=== PATIENT | female | born 1935 | race Caucasian/White ===

== ENCOUNTER 2016-03-02 17:00 | Emergency (ER) | payer MEDICARE ==
[~2016-03-02] VITALS: Ht 162.6 cm; Wt 65.0 kg
[~2016-03-02 17:00] MED LIST: BENZ100 PO; CALA180T PO; COZA50TA PO; IBUP600T26 PO
[2016-03-02 17:13] VITALS: BP 169/97; PULSE 82; RESP 16; TEMP 98.1; O2SAT 97
[2016-03-02] MEDS ORDERED: SODIUM CHLORIDE 0.9% FLUSH 5 ML FLUSH IVF PRN (17:30)
[2016-03-02] MEDS ORDERED: FAMO1TAB37 PO (17:32)
[2016-03-02] MEDS ORDERED: VERA180T35 PO (17:32)
[2016-03-02] MEDS ORDERED: APIX5TAB PO (17:32)
[2016-03-02 17:40] LABS: AUTOMATED NEUTROPHIL # 4.1 TH/MM3 (1.8-7.7); BASOPHIL # 0.1 TH/MM3 (0-0.2); BASOPHIL % 1.8 % (0.0-2.0); EOSINOPHIL # 0.1 TH/MM3 (0-0.4); EOSINOPHIL % 1.1 % (0.0-4.0); LYMPH % 31.6 % (9.0-44.0); LYMPHOCYTE # 2.2 TH/MM3 (1.0-4.8); MEAN CELL VOLUME 88.9 FL (80.0-100.0); MEAN CORPUSCULAR HGB CONC 33.7 % (32.0-36.0); MONO % 8.3 % (0.0-8.0); NEUT % 57.2 % (16.0-70.0); PLATELET COUNT 215 TH/MM3 (150-450); RED BLOOD COUNT 4.83 MIL/MM3 (4.00-5.30); RED CELL DISTRIBUTION WIDTH 13.1 % (11.6-17.2); WHITE BLOOD COUNT 7.1 TH/MM3 (4.0-11.0)
[2016-03-02 17:47] LABS: HEMO FLAGS DIFF FINAL
[2016-03-02 17:48] LABS: CHLORIDE 108 MEQ/L (98-107); POTASSIUM 4.8 MEQ/L (3.5-5.1); SODIUM (NA) 140 MEQ/L (136-145)
--- NOTE | 2016-03-02 17:48 | RADHPO ---
EXAM DATE/TIME: 03/02/2016 17:29 [facility] COMPARISON: No previous studies available for comparison. INDICATIONS : Altered mental status. Numbness and tingling right side of face. RADIATION DOSE: 59.88 CTDIvol (mGy) MEDICAL HISTORY : Hypertension. Deep venous thrombosis. SURGICAL HISTORY : None. ENCOUNTER: Initial ACUITY: 1 day PAIN SCALE: 0/10 LOCATION: Right facial TECHNIQUE: Multiple contiguous axial images were obtained of the head. Using automated exposure control and adj ustment of the mA and/or kV according to patient size, radiation dose was kept as low as reasonably a chievable to obtain optimal diagnostic quality images. FINDINGS: CEREBRUM: The ventricles are normal for age. No evidence of midline shift, mass lesion, hemorrhage or acute in farction. No extra-axial fluid collections are seen. POSTERIOR FOSSA: The cerebellum and brainstem are intact. The 4th ventricle is midline. The cerebellopontine angle i s unremarkable. EXTRACRANIAL: The visualized portion of the orbits is intact. SKULL: The calvaria is intact. No evidence of skull fracture. CONCLUSION: Normal examination for a patient of this age. Goran Tomlinson MD on March 02, 2016 at 17:45 Board Certified Radiologist. This report was verified electronically.
[2016-03-02 17:51] LABS: ANION GAP 10 MEQ/L (5-15); BICARBONATE 21.9 MEQ/L (21.0-32.0); BLOOD UREA NITROGEN 21 MG/DL (7-18)
[2016-03-02 17:54] LABS: ALT (GPT) 32 U/L (10-53); AST (GOT) 26 U/L (15-37); GLOMERULAR FILTRATION RATE 54 ML/MIN (>89)
[2016-03-02 17:56] LABS: TOTAL BILIRUBIN ADULT 0.4 MG/DL (0.2-1.0)
[2016-03-02 17:57] LABS: ALKALINE PHOSPHATASE 101 U/L (45-117)
--- NOTE | 2016-03-02 18:06 | PD ---
HPI Chief Complaint: Numbness/Tingling Time Seen by Provider: 17:10 Travel History International Travel<30 days: No Contact w/Intl Traveler<30days: No Traveled to known affect area: No History of Present Illness HPI Patient is a 72-year-old female presents with several weeks' duration of numbness and tingling with the left side of her face. Patient states she's also had some numbness tingling left side of her tongue intermittently. Denies any headaches denies any focal weakness. Patient states that this started approximately 1:00 in the afternoon today and did not relent. 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 Patient states that she called her primary care physician who referred her to the emergency department for a CAT scan of her head. PFSH Past Medical History Hx Anticoagulant Therapy: Yes (ELIQUIS) Cardiovascular Problems: Yes (HTN, CHOL) High Cholesterol: Yes Diabetes: No Diminished Hearing: No Deep Vein Thrombosis: Yes Glaucoma: No Hepatitis: No Hiatal Hernia: No Hypertension: Yes Respiratory: No Thyroid Disease: No Tetanus Vaccination: < 5 Years ?: Not : 0 Past Surgical History Abdominal Surgery: Yes Appendectomy: Yes Cardiac Surgery: No Cholecystectomy: Yes Ear Surgery: No Endocrine Surgery: No Eye Surgery: No Genitourinary Surgery: No Gynecologic Surgery: Yes (LEFT OVARY REMOVED) Neurologic Surgery: No Oral Surgery: No Pacemaker: No Thoracic Surgery: No Other Surgery: Yes Social History Alcohol Use: Yes (OCC WINE) Tobacco Use: No Substance Use: No Allergies-Medications (Allergen,Severity, Reaction): Coded Allergies: Lovastatin (Verified Allergy, Severe, LIVER FUNCTION DEPRESSED , 03/02/16) Xanax (Verified Allergy, Severe, SWELLING FACE , 03/02/16) Enalapril (Verified Allergy, Intermediate, COUGH, 03/02/16) Niacin (Verified Allergy, Intermediate, RASH, 03/02/16) Tessalon Perles (Verified Allergy, Intermediate, Itching, 03/02/16) Amoxicillin (Verified Allergy, Unknown, 03/02/16) Brimonidine (Unverified Allergy, Unknown, H/A, 03/02/16) Darvocet-N 100 (Verified Allergy, Unknown, CAN'T REMEMBER, 03/02/16) Dorzolamide (Unverified Allergy, Unknown, 03/02/16) Fosamax (Unverified Allergy, Unknown, I DONT KNOW, 03/02/16) Latanoprost (Unverified Allergy, Unknown, RED EYES, HEAD ACHE, 03/02/16) Oxycodone (Unverified Allergy, Unknown, SOB, 03/02/16) Simvastatin (Verified Allergy, Unknown, 03/02/16) Codeine (Verified Adverse Reaction, Mild, 03/02/16) Uncoded Allergies: TRAVATAM (Allergy, Unknown, HEAD ACHE, 06/22/14) Reported Meds & Prescriptions Reported Meds & Active Scripts Active Reported Pepcid (Famotidine) 20 Mg Tab 20 Mg PO BID Eliquis (Apixaban) 5 Mg Tab 5 Mg PO BID Verapamil SR (Verapamil HCl) 180 Mg Tab 180 Mg PO BID Review of Systems Except as stated in HPI: all other systems reviewed are Neg Physical Exam Narrative GENERAL: Well-developed well-nourished no apparent distress SKIN: Warm and dry. HEAD: Atraumatic. Normocephalic. EYES: Pupils equal and round. No scleral icterus. No injection or drainage. EOMI ENT: No nasal bleeding or discharge. Mucous membranes pink and moist. NECK: Trachea midline. No JVD. CARDIOVASCULAR: Regular rate and rhythm. No murmur appreciated. RESPIRATORY: No accessory muscle use. Clear to auscultation. Breath sounds equal bilaterally. GASTROINTESTINAL: Abdomen soft, non-tender, nondistended. Hepatic and splenic margins not palpable. MUSCULOSKELETAL: No obvious deformities. No clubbing. No cyanosis. No edema. NEUROLOGICAL: Awake and alert. Cranial nerves II through XII are grossly intact and nonfocal there is no subjective or objective cranial nerve V the fact , 5 out of 5 strength in all 4 extremities. No pronator drift, cerebellar testing negative. PSYCHIATRIC: Appropriate mood and affect; insight and judgment normal. Data Data Last Documented VS Vital Signs Date Time Temp Pulse Resp B/P Pulse Ox O2 Delivery O2 Flow Rate FiO2 03/02/16 18:28 57 16 146/74 96 Room Air 03/02/16 17:13 98.1 Orders Complete Blood Count With Diff (03/02/16 17:23) Comprehensive Metabolic Panel (03/02/16 17:23) Ct Brain W/O Iv Contrast(Rout) (03/02/16 17:23) Blood Glucose (03/02/16 17:23) Ecg Monitoring (03/02/16 17:23) Iv Access Insert/Monitor (03/02/16 17:23) Oximetry (03/02/16 17:23) Sodium Chloride 0.9% Flush (Ns Flush) (03/02/16 17:30) Electrocardiogram (03/02/16 17:00) Labs Laboratory Tests Test 03/02/16 17:20 White Blood Count 7.1 TH/MM3 Red Blood Count 4.83 MIL/MM3 Hemoglobin 14.5 GM/DL Hematocrit 43.0 % Mean Corpuscular Volume 88.9 FL Mean Corpuscular Hemoglobin 30.0 PG Mean Corpuscular Hemoglobin 33.7 % Concent Red Cell Distribution Width 13.1 % Platelet Count 215 TH/MM3 Mean Platelet Volume 9.8 FL Neutrophils (%) (Auto) 57.2 % Lymphocytes (%) (Auto) 31.6 % Monocytes (%) (Auto) 8.3 % Eosinophils (%) (Auto) 1.1 % Basophils (%) (Auto) 1.8 % Neutrophils # (Auto) 4.1 TH/MM3 Lymphocytes # (Auto) 2.2 TH/MM3 Monocytes # (Auto) 0.6 TH/MM3 Eosinophils # (Auto) 0.1 TH/MM3 Basophils # (Auto) 0.1 TH/MM3 CBC Comment DIFF FINAL Differential Comment Sodium Level 140 MEQ/L Potassium Level 4.8 MEQ/L Chloride Level 108 MEQ/L Carbon Dioxide Level 21.9 MEQ/L Anion Gap 10 MEQ/L Blood Urea Nitrogen 21 MG/DL Creatinine 1.00 MG/DL Estimat Glomerular Filtration 54 ML/MIN Rate Random Glucose 95 MG/DL Calcium Level 8.8 MG/DL Total Bilirubin 0.4 MG/DL Aspartate Amino Transf 26 U/L (AST/SGOT) Alanine Aminotransferase 32 U/L (ALT/SGPT) Alkaline Phosphatase 101 U/L Total Protein 7.1 GM/DL Albumin 3.5 GM/DL [facility] Medical Decision Making Medical Screen Exam Complete: Yes Emergency Medical Condition: Yes Interpretation(s) EKG shows normal sinus rhythm with a borderline left axis deviation normal R- wave progression. No concerning ST-T changes. Intervals within normal limits. This normal EKG. Differential Diagnosis CVA unlikely, stroke unlikely, head bleed unlikely. Electrolyte abnormality is a possibility. Anxiety is a possibility. Narrative Course Patient was roomed in the emergency department, she appears well and in no apparent distress. CT head is negative electrolytes within normal limits and CBC normal. Patient has been doing some reading about Yobani Wiss and found that numbness and tingling of the face is a side effect. Patient was reassured discussed need for follow-up with her primary care physician. She is agreeable to this time. No indication for further emergent workup. Diagnosis Primary Impression: Numbness and tingling Disposition: 01 DISCHARGE HOME Condition: Stable Gigi Herrera MD Mar 02, 2016 18:06
[2016-03-02 18:23] VITALS: RESP 16; O2SAT 97
[2016-03-02 18:28] VITALS: BP 146/74; PULSE 57; RESP 16; O2SAT 96
--- NOTE | 2016-03-03 11:41 | EKG ---
Date Performed: 03/02/2016 Time Performed: 17:00:52 PTAGE: 80 years EKG: Sinus rhythm . Normal ECG PREVIOUS TRACING : 07/05/2015 14.49 DOCTOR: Jose Jim Interpretating Date/Time 03/03/2016 11:40:44
== END 2016-03-02 19:03 | disposition home or self-care (01) ==
LOC: PHED 17:00
DX: R20.0 Anesthesia of skin (principal); R20.2 Paresthesia of skin; I10 Essential (primary) hypertension; E78.00 Pure hypercholesterolemia, unspecified; Z79.01 Long term (current) use of anticoagulants; Z86.718 Personal history of other venous thrombosis and embolism; Z86.711 Personal history of pulmonary embolism
CPT/HCPCS: 70450; 80053; 85025; 93005

== ENCOUNTER 2016-12-31 15:34 | Emergency (ER) | payer MEDICARE ==
[~2016-12-31 15:34] MED LIST changes: +APIX5TAB PO; -BENZ100 PO; -CALA180T PO; -COZA50TA PO; +FAMO1TAB37 PO; -IBUP600T26 PO; +VERA180T35 PO
[2016-12-31] MEDS ORDERED: VERA180C3 PO (16:19)
--- NOTE | 2016-12-31 16:32 | PD ---
HPI Chief Complaint: Fall Time Seen by Provider: 16:14 Travel History International Travel<30 days: No Contact w/Intl Traveler<30days: No Traveled to known affect area: No History of Present Illness [facility] and bumped head on the way. denies loc, but is on "blood thinners" and so is concerned and presented to ensure she has no bleed in brain. patient ambulated into er on her own power and without assistnce. PFSH Past Medical History Hx Anticoagulant Therapy: Yes (BABY ASA DAILY) Cardiovascular Problems: Yes (HTN, CHOL) High Cholesterol: Yes Diabetes: No Diminished Hearing: No Deep Vein Thrombosis: Yes Glaucoma: No Hepatitis: No Hiatal Hernia: No Hypertension: Yes Respiratory: No Thyroid Disease: No Influenza Vaccination: Yes : 0 Past Surgical History Abdominal Surgery: Yes Appendectomy: Yes Cardiac Surgery: No Cholecystectomy: Yes Ear Surgery: No Endocrine Surgery: No Eye Surgery: No Genitourinary Surgery: No Gynecologic Surgery: Yes (LEFT OVARY REMOVED) Neurologic Surgery: No Oral Surgery: No Pacemaker: No Thoracic Surgery: No Other Surgery: Yes (BLOOD CLOTS, PULMONARY EMBOLISMS) Social History Alcohol Use: Yes (OCC WINE) Tobacco Use: No Substance Use: No Allergies-Medications (Allergen,Severity, Reaction): Coded Allergies: alprazolam (Unverified Allergy, Severe, SWELLING FACE , 12/31/16) lovastatin (Unverified Allergy, Severe, LIVER FUNCTION DEPRESSED , 12/31/16 ) benzonatate (Unverified Allergy, Intermediate, Itching, 12/31/16) enalaprilat (Unverified Allergy, Intermediate, COUGH, 12/31/16) losartan (Verified Allergy, Intermediate, UNKNOWN, 12/31/16) niacin (Unverified Allergy, Intermediate, RASH, 12/31/16) omeprazole (Verified Allergy, Intermediate, UNKNOWN, 12/31/16) acetaminophen (Unverified Allergy, Unknown, PT DENIES, 12/31/16) alendronate sodium (Unverified Allergy, Unknown, I DONT KNOW, 12/31/16) amoxicillin (Unverified Allergy, Unknown, 12/31/16) brimonidine (Unverified Allergy, Unknown, H/A, 12/31/16) dorzolamide (Unverified Allergy, Unknown, 12/31/16) latanoprost (Unverified Allergy, Unknown, RED EYES, HEAD ACHE, 12/31/16) oxycodone (Unverified Allergy, Unknown, SOB, 12/31/16) propoxyphene (Unverified Allergy, Unknown, CAN'T REMEMBER, 12/31/16) simvastatin (Unverified Allergy, Unknown, 12/31/16) codeine (Unverified Adverse Reaction, Mild, 12/31/16) Uncoded Allergies: TRAVATAM (Allergy, Unknown, HEAD ACHE., 12/31/16) Reported Meds & Prescriptions Reported Meds & Active Scripts Active Reported Verapamil SR (Verapamil HCl) 180 Mg Cap 180 Mg PO BID Review of Systems Except as stated in HPI: all other systems reviewed are Neg General / Constitutional: No: Fever Eyes: No: Visual changes HENT: Positive: Headaches Cardiovascular: No: Chest Pain or Discomfort Respiratory: No: Shortness of Breath Gastrointestinal: No: Abdominal Pain Genitourinary: No: Dysuria Musculoskeletal: No: Pain Skin: No Rash Neurologic: No: Weakness Psychiatric: No: Depression Endocrine: No: Polydipsia Hematologic/Lymphatic: No: Easy Bruising Physical Exam Narrative GENERAL: SKIN: Warm and dry. PATIENT HAS SOME LOCALIZED ECHYMOSIS TO JESS FOREARMS AND ELBOWS BUT FROM NOTED. HEAD: POSTERIOR SCALP HEMATOMA WITHOUT LACERATION NOTED. Normocephalic. EYES: Pupils equal and round. No scleral icterus. No injection or drainage. ENT: No nasal bleeding or discharge. Mucous membranes pink and moist. NO HEMOTYMPANUM JESS NECK: Trachea midline. No JVD. CARDIOVASCULAR: Regular rate and rhythm. RESPIRATORY: No accessory muscle use. Clear to auscultation. Breath sounds equal bilaterally. GASTROINTESTINAL: Abdomen soft, non-tender, nondistended. Hepatic and splenic margins not palpable. MUSCULOSKELETAL: Extremities without clubbing, cyanosis, or edema. No obvious deformities. NEUROLOGICAL: Awake and alert. No obvious cranial nerve deficits. Motor grossly within normal limits. Five out of 5 muscle strength in the arms and legs. Normal speech. PSYCHIATRIC: Appropriate mood and affect; insight and judgment normal. Data Data Last Documented VS Orders Orders Ct Brain W/O Iv Contrast(Rout) (12/31/16 16:15) Ed Discharge Order (12/31/16 18:06) MDM Medical Decision Making Medical Screen Exam Complete: Yes Emergency Medical Condition: Yes Medical Record Reviewed: Yes Differential Diagnosis ICH V SKULL FX V SCALP HEMATOMA Narrative Course CT IS NEG FOR ICH , NO SKULL FX EITHER JUST SHOWS SCALP HEMATOMA Diagnosis Primary Impression: Scalp hematoma Qualified Codes: S00.03XA - Contusion of scalp, initial encounter Patient Instructions: General Instructions, Scalp Contusion in Adults (ED) Disposition: 01 DISCHARGE HOME Condition: Stable Kieran Curry MD Dec 31, 2016 16:32
--- NOTE | 2016-12-31 16:41 | RADRPT ---
EXAM DATE/TIME: 12/31/2016 16:26 [facility] COMPARISON: CT BRAIN W/O CONTRAST, March 02, 2016, 17:29. INDICATIONS : Trauma. Fell and hit head. Laceration. Dizziness. RADIATION DOSE: 64.94 CTDIvol (mGy) MEDICAL HISTORY : Deep venous thrombosis. Hypertension. SURGICAL HISTORY : Appendectomy. Cholecystectomy. ENCOUNTER: Initial ACUITY: 1 day PAIN SCALE: 2/10 LOCATION: cranial TECHNIQUE: Multiple contiguous axial images were obtained of the head. Using automated exposure control and adj ustment of the mA and/or kV according to patient size, radiation dose was kept as low as reasonably a chievable to obtain optimal diagnostic quality images. DICOM format image data is available electro nically for review and comparison. FINDINGS: CEREBRUM: The ventricles are normal for age. No evidence of midline shift, mass lesion, hemorrhage or acute in farction. No extra-axial fluid collections are seen. POSTERIOR FOSSA: The cerebellum and brainstem are intact. The 4th ventricle is midline. The cerebellopontine angle i s unremarkable. EXTRACRANIAL: The visualized portion of the orbits is intact. SKULL: The calvaria is intact. No evidence of skull fracture. CONCLUSION: Negative for an acute process. Small cephalhematoma right occipital region. Alexis Cochran MD FACR on December 31, 2016 at 16:39 Board Certified Radiologist. This report was verified electronically.
[2016-12-31 18:30] VITALS: BP 140/72
== END 2016-12-31 18:57 | disposition home or self-care (01) ==
LOC: PHED 15:34
DX: S00.03XA Contusion of scalp, initial encounter (principal); I10 Essential (primary) hypertension; W01.0XXA Fall on same level from slipping, tripping and stumbling without subsequent striking against object, initial encounter
CPT/HCPCS: 70450; 99284